=== PATIENT | male | born 1975 | race Caucasian/White ===

== ENCOUNTER 2025-03-01 12:28 | Emergency (ER) | payer OTHER ==
[2025-03-01] MEDS: Diphtheria,Pertussis(Acell),Tetanus Vaccine 0.5 ML Syringe IM ONE (13:26)
[2025-03-01] MEDS: Lidocaine 1% with EPINEPHrine 1:100,000 20 ML MDV INJECT ONE (13:26)
[2025-03-01] MEDS: Bacitracin Oint 1 GM U/D Packet TOP ONE (13:26)
== END 2025-03-01 14:20 | disposition home or self-care (01) ==
LOC: JP.ED 12:28
DX: S81.011A Laceration without foreign body, right knee, initial encounter (principal); Z23 Encounter for immunization; K21.9 Gastro-esophageal reflux disease without esophagitis; Z79.899 Other long term (current) drug therapy; W01.198A Fall on same level from slipping, tripping and stumbling with subsequent striking against other object, initial encounter
CPT/HCPCS: 12002; 12032; 90471; 90715; 99282; 99283; J2004